=== PATIENT | male | born 1965 | race Caucasian/White ===

== ENCOUNTER 2016-05-11 06:34 | Day surgery (SDC) | payer OTHER ==
[2016-05-11] VITALS (7 sets, daily range): BP systolic 121–159; BP diastolic 70–84; PULSE 65–88; RESP 10–21; O2SAT 97–99
[~2016-05-11] VITALS: Ht 175.3 cm; Wt 94.6 kg
[~2016-05-11 06:34] MED LIST: ACET-171 PO; CeFAZolin 2 Gm/50 mL D5W IV Premix IV ONE; IBUP200C PO; NAPR220C11 PO
[2016-05-11] MEDS ORDERED: Propofol 10,000 mCg/mL 20 mL Inj ONE (06:35)
[2016-05-11] MEDS ORDERED: Ketamine 10 mg/mL 20 mL Inj ONE (06:35)
[2016-05-11] MEDS ORDERED: fentaNYL-PF 50 mCg/mL 2 mL Inj ONE (06:35)
[2016-05-11] MEDS ORDERED: Dexamethasone 4 mg/mL Inj ONE (06:35)
[2016-05-11] MEDS ORDERED: Ondansetron 2 mg/mL 2 mL Inj ONE (06:35)
[2016-05-11] MEDS: Lactated Ringer's 1,000 ML IV SCH ×2 (07:12→09:06)
[2016-05-11] MEDS ORDERED: Lactated Ringer's 1,000 ML IV SCH (08:17)
[2016-05-11] MEDS ORDERED: Lactated Ringer's 500 ML IV PRN (08:17)
--- NOTE | 2016-05-11 08:17 | PCM.HPANE ---
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 Admitting Provider: Attending Provider:Chaz Carlton MD Primary Care Physician:Celso Maxwell MD Other Provider:Norma Coreasingham Anesthesia Reason for Visit Left Knee Medial Meniscus Tear Ht/WT & BMI Height (Feet): 5 Height (Inches): 9 Weight (Kilograms): 94.6 Body Mass Index 30.00 Allergies Coded Allergies: No Known Allergies (Unverified , 05/09/16) Past Anesthesia History Anesthesia History: Denies:: Abnormal Airway, Anesthesia Reactions, Difficult Intubation, Fam Anesthesia Reaction, Fam Malignant Hypertherm, Malignant Hyperthermia Diabetes History Hx Diabetes?: No MRSA MRSA: No Medications Hypertension Medication: No Home Meds Incl Beta Nuvia: No Reported Medications Naproxen Sodium (Aleve)220 Mg [id number] Mg PO 05/09/16 Ibuprofen 200 Mg [id number] Mg PO QID PRN For Pain Ref 0 05/09/16 Acetaminophen 500 Mg [id number] Mg PO Q6H PRN For Fever 05/09/16 History History of ENT Problems?: No HEENT History: Denies:: Abnormal Airway Difficult Intubation Hearing Problem Teeth Condition: Missing Teeth Hx of Heart Problems?: No Cardiovascular History: Denies:: Atrial Fibrillation Cardiac Surgery Chest Pain Heart Murmur Hypertension Irregular Heartbeat Pacemaker Hx of Respiratory Problem?: Yes Respiratory History: Denies:: Asthma COPD Emphysema Tuberculosis Hx Neurologic Problems?: No Neurological History: Denies:: CVA Dizziness Headaches Multiple Sclerosis Parkinson's Disease Seizures TIA Hx of GI Problems?: No Gastrointestinal History: Denies:: Cirrhosis Gastroesphageal Reflux Heartburn Hepatitis Liver Disease Hx of Problems?: No Male Hx: Denies:: Prostate Problems Skin History: Denies:: History Skin Disorders? Pressure Ulcers Hx Musculoskeletal Problems?: Yes Musculoskeletal History: Positive for:: Musculoskeletal Trauma (left knee) Osteoarthritis (KNEE) Denies:: Back Injury Fibromyalgia Hx of Psycho/Social Problems?: No Psycho Social History: Denies:: Anxiety Bipolar Disorder Hx Depression Hx Surgeries?: Yes (foot ORIF, RIGHT FEMUR NAILING) Hx Any Other Health Problems?: Yes Other History: Positive for:: Hospitalization (SURGERIES) Denies:: Cancer Endocrine Disease Thyroid Disease History Blood Transfusions: Positive for:: Accept Blood Products? Hx Diabetes: No Hx Alcohol Use: NoHx Substance Use: NoHave You Smoked inLast 12 mo: Yes Approx How Many Cigarettes/day: 20 Stop/Bang S-Snoring: Do You Snore Loudly: Yes T-Tired: feel tired, fatigued: Yes O-Obsered: Observed not breath: Yes P-Blood Pressure: treated: No B- Body Mass Index > 35 kg/m2: No A- Age over 50: No N- Neck Large Circumference: No G- Gender Male: Yes GIULIANO Total Score: 4 GIULIANO Risk Assessment: High Risk, =/>3 Yes GIULIANO Category 2: Yes Risk Assessment Category Category 1A: Patient has history of documented sleep apnea, and HAS NOT received any narcotic, sedative or anesthesia administration during this stay. Category 1B: Patient has history of documented sleep apnea, and HAS received any narcotic , sedative or anesthesia administration during this stay Category 2: Patient has SUSPECTED Obstructive Sleep Apnea, and HAS received any narcotic , sedative or anesthesia administration during this stay. Category 3: Patient has SUSPECTED Obstructive Sleep Apnea and HAS NOT received narcotic, sedative or anesthesia administration during this stay. Category 4: Outpatient in Procedural Areas with known sleep apnea or who screen positive for High Risk via the STOP/BANG questionnaire. Exam Exam Vital Signs Vital Signs Date Time Temp Pulse Resp B/P Pulse Ox O2 Delivery O2 Flow Rate FiO2 05/11/16 06:52 36.6 65 16 125/84 99 Room Air General Appearance: Alert, Oriented X3, Cooperative, No Acute Distress HEENT/AIRWAY: MP 2 Lungs: Clear to Auscultation, Normal Air Movement Heart: Exam Unremarkable, Regular Rate/Rhythm, No Murmurs/Rubs/Gallops Meds/Labs/Diagnostics Admission Meds Current Medications Lactated Ringer's (Lr) 1,000 ml @ 120 mls/hr Q8H20M IV Last administered on t 07:12; Start 05/11/16 at 05:00; Stop 05/11/16 at 13:19 Plan Impression Patient chart reviewed, patient interviewed and anesthestic plan with risks, benefits, and alternatives discussed, and informed consent obtained. NPO Status: mn ASA Physical Status: ASA2 Mod Systemic Disease Anesthetic Plan: GA Bene/Risks/Altern/Consents: Yes HP Complete Prior to Induction: Yes Pratik Ybarra MD May 11, 2016 08:17
[2016-05-11] MEDS ORDERED: Phenylephrine 10,000 mCg/mL Inj IVPUSH PRN (08:20)
[2016-05-11] MEDS ORDERED: MetoCLOpramide 5 mg/mL 2 mL Inj IVPUSH PRN (08:20)
[2016-05-11] MEDS ORDERED: EPHEDrine Sulfate 50 mg/mL Inj IVPUSH PRN (08:20)
[2016-05-11] MEDS ORDERED: fentaNYL-PF 50 mCg/mL 2 mL Inj IVPUSH PRN (08:20)
[2016-05-11] MEDS ORDERED: Dexamethasone 4 mg/mL Inj IVPUSH PRN (08:20)
[2016-05-11] MEDS ORDERED: Ondansetron 2 mg/mL 2 mL Inj IVPUSH PRN (08:20)
[2016-05-11] MEDS ORDERED: HYDROmorphone 1 mg/mL Inj IVPUSH PRN (08:20)
[2016-05-11] MEDS ORDERED: Lidocaine 2%-Epi 1:100,000 20 mL Inj NERVEBLOCK ONE (09:05)
[2016-05-11] MEDS ORDERED: MethylprednisoLONE Depot 80 mg/mL Inj INJ ONE (09:11)
[2016-05-11] MEDS ORDERED: HYDROcodone-APAP 5-325 mg Tablet PO PRN (09:25)
--- NOTE | 2016-05-11 09:28 | PCM.ORTHOB ---
Immediate Operative Note Date of Service: May 11, 2016 Pre Operative Diagnosis Left knee medial meniscal tear Post Operative Diagnosis Same Procedure Left knee arthroscopic partial medial meniscectomy Surgeon Surgeon: Chaz Carlton MD Assistants: None Findings Left knee medial meniscal tear extending from the junction of the body of posterior horn through the posterior horn. Areas of the 2 chondromalacia in the anterior weightbearing surface medial femoral condyle diffuse grade 1 chondromalacia on the tibial articular surface. Anterior cruciate ligament showed minor anterior fraying but the structure was otherwise intact and stable to probing. Lateral compartment showed diffuse grade 1-2 chondromalacia in the weightbearing surface of the lateral femoral condyle and tibial articular surface. Lateral meniscus was intact and stable to probing. No loose bodies were noted in the medial or lateral gutters. 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 Grafts, Implants: None Complications There were no periprocedural complications identified. Condition Stable Anesthetic Administered: GA Drains: None Catheters: None Output, Estimated Blood Loss: 1 Blood Admin during surgery: No Surgical Cast or Splint: None Additional Information Tourniquet time 24 minutes Surgical Specimen Removed: No Surgical Specimen sent to Path: No Post Operative Plan The patient will be discharged later surgery when protocol is met. The patient may weight-bear as tolerated beginning postop day #1. The patient will be seen for routine wound check on or after postoperative day #5. Skin sutures can be removed on or after postoperative day #12. The patient should be able to resume light activities of daily living and work by that point. Chaz Carlton MD May 11, 2016 09:28
--- NOTE | 2016-05-11 09:34 | PCM.ORTHOP ---
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 He reports developing pain in his left knee over the last year it was not associated with any specific change in activity or trauma. He describes a catching sharp pain on the inside of his left knee with loaded squatting, turning, twisting activities. He also has a dull ache not necessarily related to activity. The patient's knee symptoms have not responded to activity modification, appropriate attempted knee strengthening and the use of anti-inflammatory agents. Preoperative exam of the patient's left knee revealed near full and stable range of motion with positive Lisset sign medially and a trace effusion. Preoperative left knee MRI reveals a horizontal tear of the posterior horn of medial meniscus, mucoid degeneration of the anterior cruciate ligament and minimal degenerative changes. The patient presents for left knee arthroscopic partial medial meniscectomy. Findings Left knee medial meniscal tear extending from the junction of the body of posterior horn through the posterior horn. Areas of the 2 chondromalacia in the anterior weightbearing surface medial femoral condyle diffuse grade 1 chondromalacia on the tibial articular surface. Anterior cruciate ligament showed minor anterior fraying but the structure was otherwise intact and stable to probing. Lateral compartment showed diffuse grade 1-2 chondromalacia in the weightbearing surface of the lateral femoral condyle and tibial articular surface. Lateral meniscus was intact and stable to probing. No loose bodies were noted in the medial or lateral gutters. 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 Details of Procedure The patient was brought to the OR and given a general anesthetic. He is placed in the supine position and tourniquet placed high about the left thigh. Left lower extremity was prepped and draped in usual sterile fashion and a tourniquet was inflated to 275 mmHg. We placed 2 infrapatellar arthroscopic portals, one medial and one lateral for the scope and instruments. We went directly to the medial compartment where we confirmed the degenerative- appearing tear of the medial meniscus extending from the junction of the body and posterior horn through the posterior horn. There were mild degenerative changes on both sides of the joint. We used the arthroscopic shaver to debride the meniscal tear back to a stable base. We then explored the rest of the knee. We found the anterior cruciate ligament Minor anterior fraying but was otherwise intact and stable to probing. The lateral compartment showed mild early degenerative changes with an intact lateral meniscus which did not appear particularly discoid. The medial and lateral gutters were reviewed. No loose bodies were noted. Patellofemoral compartment was reviewed and found to have minimal degenerative changes. The knee was thoroughly irrigated. 30 mL of 2% lidocaine with epinephrine and 40 mg of Depo-Medrol was instilled into the knee joint. Arthroscopic portals were closed with interrupted 4-0 nylon sutures. Wounds dressed with Xeroform and dry gauze dressings. Tourniquet was deflated and the patient was taken back to PACU in stable and satisfactory condition. There were no complications. Patient tolerated the procedure well. Grafts, Implants: None Complications There were no periprocedural complications identified. Condition Stable Anesthetic Administered: GA Drains: None Catheters: None Output, Estimated Blood Loss: 1 Blood Admin during surgery: No Surgical Cast or Splint: None Addtional Information Tourniquet time 24 minutes Surgical Specimen Removed: No Specimen sent to Pathology: No Post Operative Plan The patient will be discharged later surgery when protocol is met. The patient may weight-bear as tolerated beginning postop day #1. The patient will be seen for routine wound check on or after postoperative day #5. Skin sutures can be removed on or after postoperative day #12. The patient should be able to resume light activities of daily living and work by that point. copies to: Celso Maxwell MD; Chaz Carlton MD, Michael G.E MD May 11, 2016 09:34
--- NOTE | 2016-05-11 11:01 | PCM.ANEP1 ---
Post Anesthesia Phase 1 PACU Phase 1 Assessment Date of Service: May 11, 2016 Vital Signs Vital Signs Date Time Temp Pulse Resp B/P Pulse Ox O2 Delivery O2 Flow Rate FiO2 05/11/16 10:21 72 16 145/75 97 Room Air 05/11/16 09:49 37.3 69 10 130/75 98 Nasal Cannula 2 05/11/16 09:45 75 12 121/70 98 Nasal Cannula 2 05/11/16 09:35 85 17 134/75 98 Room Air 05/11/16 09:30 88 20 130/78 99 Room Air 05/11/16 09:25 36.6 88 21 159/79 97 Simple Mask 9 05/11/16 06:52 36.6 65 16 125/84 99 Room Air Anesthetic Administered: GA LEHMAN's with Equal Strength: Yes Pain: No Nausea or Vomiting: No Oxygen Delivery: Simple Mask Lungs: Clear to Auscultation, Normal Air Movement Dermatome Level: Full Sensation Pratik Ybarra MD May 11, 2016 11:01
--- NOTE | 2016-05-11 11:01 | PCM.ANEP2 ---
Post Anesthesia Evaluation ASA/CMS Post Anesthesia VS in Patient's Normal Range?: Yes Resp Stable; Airway Patent?: Yes CV Function & Hydration Stable: Yes Mental Status Recovered?: Yes Pain control Satisfactory?: Yes N/V Control Satisfactory?: Yes Pratik Ybarra MD May 11, 2016 11:01
== END 2016-05-11 23:59 | disposition home or self-care (01) ==
LOC: SAS 06:34
PROVIDERS: ATTEND Orthopaedic Surgery
DX: M23.222 Derangement of posterior horn of medial meniscus due to old tear or injury, left knee (principal); M22.42 Chondromalacia patellae, left knee; G47.33 Obstructive sleep apnea (adult) (pediatric); F17.210 Nicotine dependence, cigarettes, uncomplicated